=== PATIENT | female | born 1995 | race Caucasian/White ===

== ENCOUNTER 2020-11-21 17:47 | Emergency (ER) | payer OTHER, SELFPAY ==
[2020-11-21 17:55] VITALS: BP 104/87; PULSE 71; RESP 16; TEMP 36.6; O2SAT 100
--- NOTE | 2020-11-21 18:05 | ED.FEMALEGU ---
HPI - Female Genitourinary General Chief complaint: Urogenital-Female Stated complaint: Poss UTI Source: patient Mode of arrival: ambulatory Limitations: no limitations History of Present Illness HPI Narrative: Patient is a 25-year-old female who presents complaining of urinary frequency, urgency and dysuria. Patient reports initially having hematuria which has since resolved. Patient reports all signs and symptoms started approximately 1 week ago. She has been recently taking Azo with moderate relief. She reports a history of UTIs in the past, but has not had antibiotics in a while. She denies vaginal discharge or exposure to STDs. She denies significant medical history. MD elicited complaint: UTI Related Data Home Medications Medication Instructions Recorded Confirmed methadone 40 mg PO DAILY 11/21/20 11/21/20 Allergies Allergy/AdvReac Type Severity Reaction Status Date / Time Penicillins Allergy Swelling Verified 11/21/20 18:03 of Lip/Tongue/Throat Review of Systems Review of Systems: Narrative: CONSTITUTIONAL: Denies fever, chills, or sweats. EYES: Denies visual changes, redness, or discharge. ENT: Denies rhinorrhea, congestion, sore throat, or otalgia. CARDIOVASCULAR: Denies chest pain, palpitations, or edema. RESPIRATORY: Denies cough or dyspnea. GASTROINTESTINAL: Denies abdominal pain, nausea, vomiting, or diarrhea. GENITOURINARY: Reports dysuria, frequency and hematuria SKIN: Denies rash or itching. MUSCULOSKELETAL: Denies back pain, joint pain, or myalgia. NEUROLOGIC: Denies headache, numbness, dizziness, or weakness. PSYCHIATRIC: Denies anxiety or depression. [facility] Past Medical History Medical History (Updated 11/21/20 @ 18:21 by YAZAN Adams) UTI (urinary tract infection) Surgical History Surgical History (Updated 11/21/20 @ 18:21 by YAZAN Adams) No significant past surgical history Family History Family History (Updated 11/21/20 @ 18:21 by YAZAN Adams) Other No significant family history Social History Social History (Updated 11/21/20 @ 18:20 by YAZAN Adams) Smoking status: Former smoker Tobacco type: cigarettes Alcohol intake: never Substance use: former Occupation/Education: occupation Gender identity (if verbalized by the patient): Female Comments At the time of signature, I have reviewed and agree with nursing past medical, surgical, social, and family history unless otherwise noted. Please see nursing chart for further information. There is no relevant family history pertinent to the presenting complaint. Exam Narrative: Exam Narrative: GENERAL: Well-appearing, well-nourished, and in no acute distress. HEAD: Normocephalic, atraumatic. EYES: EOMI. No redness or drainage. Conjunctiva are normal. ENT: Mucous membranes pink and moist. CHEST: No respiratory distress. HEART: Regular rate and rhythm. GI: Soft, nontender without rebound, or guarding. No distention. EXTREMITIES: Normal range of motion. SKIN: Warm, dry, no rash. NEURO: No focal deficits. Alert and oriented x3. Gait steady. PSYCH: Normal affect. No signs of depression or anxiety. Course Vital Signs Vital signs: Vital Signs Temperature 36.6 C 11/21/20 17:55 Pulse Rate 71 11/21/20 17:55 Respiratory Rate 16 11/21/20 17:55 Blood Pressure 104/87 11/21/20 17:55 Pulse Oximetry 100 11/21/20 17:55 Temperature 36.6 C 11/21/20 17:55 Pulse Rate 71 11/21/20 17:55 Respiratory Rate 16 11/21/20 17:55 Blood Pressure 104/87 11/21/20 17:55 Pulse Oximetry 100 11/21/20 17:55 Reviewed MDM - Female Genitourinary MDM Narrative Medical decision making narrative: Patient's UA positive for blood, leukocytes and nitrates. Patient most likely has UTI, culture to be sent at this time. Patient started on Macrobid. Patient instructed on increasing fluids and as well as using Azo [id number] if needed. Patient agr
== END 2020-11-21 18:19 | disposition home or self-care (01) ==
PROVIDERS: Emergency Provider Nurse Practitioner
DX: N39.0 Urinary tract infection, site not specified (principal); Z87.891 Personal history of nicotine dependence
CPT/HCPCS: 81003; 87077; 87086; 87088; 87186; 99213; G0463

== ENCOUNTER 2021-03-16 12:42 | Emergency (ER) | payer OTHER, SELFPAY ==
--- NOTE | 2021-03-16 13:25 | PC.NURSE ---
~1310- pt ambulated out of ED with steady gait. No c/o voiced.
== END 2021-03-17 03:33 | disposition left against medical advice (07) ==
DX: Z53.21 Procedure and treatment not carried out due to patient leaving prior to being seen by health care provider (principal)
CPT/HCPCS: 99199

== ENCOUNTER 2021-07-15 14:51 | Emergency (ER) | payer OTHER, SELFPAY ==
--- NOTE | 2021-07-15 14:54 | ED.URI ---
HPI - URI/Sore Throat General Chief Complaint: Upper Respiratory Infection Stated Complaint: Ears and throat Time Seen by Provider: 07/15/21 14:54 Source: patient and RN notes reviewed History of Present Illness HPI Narrative: Patient is a 25-year-old female who presents the urgent care with complaints of bilateral ear pain and sore throat for the last 2 days. Patient states that her throat hurts worse on the left side. She has been taking aspirin, using cough drops and drinking cold tea. Denies of any known fevers, nausea, vomiting. Patient has had Covid approximately 4 months ago. No other acute complaints. No acute distress noted. Patient read the plan of care. Some parts of this dictation were generated by voice recognition software and may contain typographical and/or grammatical inaccuracies. Related Data Allergies Allergy/AdvReac Type Severity Reaction Status Date / Time Penicillins Allergy Swelling Verified 11/21/20 18:03 of Lip/Tongue/Throat Review of Systems Review of Systems: CONSTITUTIONAL: Denies fever, chills, or sweats. EYES: Denies visual changes, redness, or discharge. ENT: Reports of bilateral otalgia and sore throat CARDIOVASCULAR: Denies chest pain, palpitations, or edema. RESPIRATORY: Denies cough or dyspnea. GASTROINTESTINAL: Denies abdominal pain, nausea, vomiting, or diarrhea. GENITOURINARY: Denies dysuria or hematuria. SKIN: Denies rash or itching. MUSCULOSKELETAL: Denies back pain, joint pain, or myalgia. NEUROLOGIC: Denies headache, numbness, or weakness. All other systems reviewed are negative, except as documented in HPI. [facility] Past Medical History Medical History (Updated 07/15/21 @ 15:25 by YAZAN Salas) UTI (urinary tract infection) Surgical History Surgical History (Updated 11/21/20 @ 18:21 by YAZAN Adams) No significant past surgical history Family History Family History (Updated 11/21/20 @ 18:21 by YAZAN Adams) Other No significant family history Social History Social History (Updated 11/21/20 @ 18:20 by YAZAN Adams) Smoking status: Former smoker Tobacco type: cigarettes Alcohol intake: never Substance use: former Gender identity (if verbalized by the patient): Female Comments At the time of my signature, I reviewed and agree with the nursing past medical, surgical, social, and family history. There is no relevant family history pertinent to the patient complaint. Exam Narrative: GENERAL: This is a well-nourished, well-developed patient, in no apparent distress. HEAD: normocephalic, atraumatic. EYES: PERRL. Sclera clear/white. Vision is grossly intact. EARS: External ears normal, auditory canals clear and without drainage, TMs normal without perforation. Hearing grossly intact. NOSE: External nose normal with no obvious nasal discharge, nares without redness, no rhinorrhea. THROAT: Mucous membranes moist, mild to moderate tear edema/erythema noted to the left tonsil with mild edema/erythema to the right. No exudate noted. Moderate postnasal drainage. NECK: Neck supple, mild bilateral nontender submandibular lymphadenopathy CARDIOVASCULAR: Regular rate and rhythm without murmurs, gallops, or rubs. RESPIRATORY: Clear to auscultation. Breath sounds equal bilaterally. No wheezes, rales, or rhonchi. SKIN: warm, intact with no suspicious lesions or rash, good texture and turgor. NEURO: awake, alert, and oriented to person, place and time. There were no obvious focal neurologic abnormalities. EXTREMITIES: No clubbing, cyanosis, or edema. Course Vital Signs Vital signs: Vital Signs Temperature 98.8 F 07/15/21 15:00 Pulse Rate 82 07/15/21 15:00 Respiratory Rate 18 07/15/21 15:00 Blood Pressure 118/59 L 07/15/21 15:00 Pulse Oximetry 100 07/15/21 15:00 Temperature 98.8 F 07/15/21 15:22 Pulse Rate 82 07/15/21 15:22 Respiratory Rate 18 07/15/21 15:22 Blood Pressure 118/59 L 11/0
[2021-07-15 15:00] VITALS: BP 118/59; PULSE 82; RESP 18; TEMP 37.1; O2SAT 100
[2021-07-15 15:22] VITALS: BP 118/59; PULSE 82; RESP 18; TEMP 37.1; O2SAT 100
== END 2021-07-15 15:30 | disposition home or self-care (01) ==
PROVIDERS: Emergency Provider Nurse Practitioner Family
DX: J02.0 Streptococcal pharyngitis (principal)
CPT/HCPCS: 87880; 99213; G0463

== ENCOUNTER 2022-03-23 18:14 | Emergency (ER) | payer OTHER, SELFPAY ==
[2022-03-23 18:20] VITALS: BP 138/63; PULSE 64; RESP 14; TEMP 36.6; O2SAT 100
--- NOTE | 2022-03-23 18:23 | ED.NAVMDI ---
HPI - Nausea/Vomiting/Diarrhea General Chief complaint: Nausea/Vomiting/Diarrhea Stated complaint: Nausea/Headache/Dizziness Time Seen by Provider: 03/23/22 18:23 Source: patient and RN notes reviewed History of Present Illness HPI Narrative: Patient is a 26-year-old female presents the urgent care with complaints of intermittent nausea, headache, dizziness and fatigue. Patient states its been ongoing for approximately 1 week but she is feeling much better. Patient states that she has not taken anything for her symptoms and just feels like her anxiety is a little higher this week. States that she was googling things after cleaning out her hamster/rodents cage at home and assuming she came down with some lymphocytic virus. Patient denies of any abdominal pain. Patient does not appear to be in any acute distress. Patient aware of the plan of care. Some parts of this dictation were generated by voice recognition software and may contain typographical and/or grammatical inaccuracies. Related Data Home Medications Medication Instructions Recorded Confirmed methadone 10 mg tablet 35 mg PO DAILY 03/23/22 03/23/22 Allergies Allergy/AdvReac Type Severity Reaction Status Date / Time Penicillins Allergy Swelling Verified 03/23/22 18:27 of Lip/Tongue/Throat Sulfa (Sulfonamide Allergy Rash Verified 03/23/22 18:27 Antibiotics) Review of Systems Review of Systems: CONSTITUTIONAL: Denies fever, chills, or sweats. EYES: Denies visual changes, redness, or discharge. ENT: Denies rhinorrhea, congestion, sore throat, or otalgia. CARDIOVASCULAR: Denies chest pain, palpitations, or edema. RESPIRATORY: Denies cough or dyspnea. GASTROINTESTINAL: Reports of intermittent nausea and vomiting GENITOURINARY: Denies dysuria or hematuria. SKIN: Denies rash or itching. MUSCULOSKELETAL: Denies back pain, joint pain, or myalgia. NEUROLOGIC: Reports of headache All other systems reviewed are negative, except as documented in HPI. [facility] Past Medical History Medical History (Updated 03/23/22 @ 18:47 by YAZAN Salas) UTI (urinary tract infection) Surgical History Surgical History (Updated 11/21/20 @ 18:21 by Paz Gayle, YAZAN) No significant past surgical history Family History Family History (Updated 11/21/20 @ 18:21 by Paz Gayle, NURSE OFFICE) Other No significant family history Social History Social History (Updated 11/21/20 @ 18:20 by Paz Gayle, NURSE OFFICE) Smoking status: Former smoker Tobacco type: cigarettes Alcohol intake: never Substance use: former Gender identity (if verbalized by the patient): Female Comments At the time of my signature, I reviewed and agree with the nursing past medical, surgical, social, and family history. There is no relevant family history pertinent to the patient complaint. Exam Narrative: GENERAL: This is a well-nourished, well-developed patient, in no apparent distress. HEAD: normocephalic, atraumatic. EYES: PERRL. Sclera clear/white. Vision is grossly intact. EARS: External ears normal NOSE: External nose normal with no obvious nasal discharge, nares without redness, no rhinorrhea. THROAT: Mucous membranes moist NECK: Neck supple CARDIOVASCULAR: Regular rate and rhythm without murmurs, gallops, or rubs. RESPIRATORY: Clear to auscultation. Breath sounds equal bilaterally. No wheezes, rales, or rhonchi. GASTROINTESTINAL: Abdomen soft, non-tender, nondistended. SKIN: warm, intact with no suspicious lesions or rash, good texture and turgor. NEURO: awake, alert, and oriented to person, place and time. There were no obvious focal neurologic abnormalities. EXTREMITIES: No clubbing, cyanosis, or edema. Course Course Level of Care: Express Care Visit Vital Signs Vital signs: Vital Signs Temperature 97.9 F 03/23/22 18:20 Pulse Rate 64 03/23/22 18:20 Respiratory Rate 14 03/23/22 18:20 Blood Pressure 138/63 03/23/22 18:20 Pulse
== END 2022-03-23 18:49 | disposition home or self-care (01) ==
PROVIDERS: Emergency Provider Nurse Practitioner Family
DX: B34.9 Viral infection, unspecified (principal); R11.0 Nausea; Z87.891 Personal history of nicotine dependence
CPT/HCPCS: 99213; G0463

== ENCOUNTER 2023-01-17 12:37 | Emergency (ER) | payer OTHER, SELFPAY | END 2023-01-17 12:48 | disposition left against medical advice (07) | LOC: EXPBETH 12:40 | PROVIDERS: Emergency Provider Registered Nurse | DX: Z53.21 Procedure and treatment not carried out due to patient leaving prior to being seen by health care provider (principal) | CPT/HCPCS: 99199 ==

== ENCOUNTER → 2023-12-18 12:33 | Outpatient (CLI) | payer OTHER, SELFPAY ==
--- NOTE | 2023-12-18 14:43 | PC.NURSE ---
SEE DOWNTIME DOCUMENTATION.
== END ==
PROVIDERS: PCP Family Medicine; Visit Provider Nurse Practitioner Family
DX: R05.9 Cough, unspecified (principal); R50.9 Fever, unspecified; R09.81 Nasal congestion
CPT/HCPCS: 99211; G0463

== ENCOUNTER 2024-06-20 11:54 | Emergency (ER) | payer OTHER, SELFPAY ==
[2024-06-20 12:04] VITALS: BP 111/57; PULSE 84; RESP 20; TEMP 37.2; O2SAT 100
[2024-06-20 12:21] VITALS: BP 111/57; PULSE 84; RESP 20; TEMP 37.2; O2SAT 100
--- NOTE | 2024-06-20 12:41 | ED.GENADULT ---
HPI - General Adult General Chief complaint: Upper Respiratory Infection Stated complaint: lt ear and lt neck pain Time Seen by Provider: 06/20/24 12:33 Source: patient and RN notes reviewed Mode of arrival: ambulatory Limitations: no limitations History of Present Illness HPI narrative: Patient presents today complaining of left ear and neck pain x2 days, worse today. Denies any decreased hearing or drainage from the ear. Currently rates her pain 6/10 and has been taking aspirin with some mild relief. Related Data Home Medications Medication Instructions Recorded Confirmed methadone 10 mg tablet 15 mg PO DAILY 03/23/22 06/20/24 Allergies Allergy/AdvReac Type Severity Reaction Status Date / Time Penicillins Allergy Swelling Verified 06/20/24 12:21 of Lip/Tongue/Throat Sulfa (Sulfonamide Allergy Rash Verified 06/20/24 12:21 Antibiotics) Review of Systems Review of Systems: GENERAL: Denies fever, chills, or decreased activity. EYES: Denies any eye discharge or redness. ENT: Denies sore throat, congestion, or rhinorrhea.+ left ear and neck pain RESP: Denies any cough, wheezing, or difficulty breathing. CARDIOVASCULAR: Denies any rapid heart rate or cool extremities. ABDOMINAL: Denies any constipation, vomiting, diarrhea, or decreased food intake. : Denies any hematuria, foul smelling urine, or decreased urine frequency. SKIN: Denies any lesions, rashes, bruises. MUSCULOSKELETAL: Denies any pain or swelling. NEURO: Denies any lethargy, irritability, or seizures. PSYCH: Denies abnormal interaction with family and friends. [facility] Past Medical History Medical History UTI (urinary tract infection) Surgical History Surgical History No significant past surgical history Family History Family History Other No significant family history Social History Social History Smoking status: Former smoker Tobacco type: cigarettes Alcohol intake: never Substance use: former Occupation/Education: occupation Gender identity (if verbalized by the patient): Female Comments At time of signature, I have reviewed and agree with nursing past medical, surgical, social and family history unless otherwise noted. Please see nursing chart for further information. There is no relevant family history pertinent to the presenting complaint Exam Narrative: GENERAL: Well nourished, well developed, no acute distress. Well appearing, non-toxic. EYES: PERRL, EOMs normal, conjunctivae normal. ENT: Head normocephalic and atraumatic. Nose normal without drainage. TMs clear with normal light reflex. Left ear: No movement or tragal tenderness. No mastoid tenderness. Pharynx without erythema or edema. Uvula midline. Neck supple. No lymphadenopathy. Full ROM of neck with increased pain with flexion, extension, left rotation, left lateral flexion. Tenderness to the left cervical paraspinal muscles. Distal sensation intact. Capillary refill normal. Radial pulses normal. Hand principal security architect equal and strong RESP: No sign of respiratory distress. MUSC/SKEL: Good strength, good range of movement. Moves all extremities equally. NEURO: Alert. Good coordination. SKIN: Warm, dry, no rash, normal cap refill. Skin turgor normal. PSYCH: Affect and mood appropriate. Course Course Level of Care: Express Care Visit Vital Signs Vital signs: Vital Signs Temperature 98.9 F 06/20/24 12:04 Pulse Rate 84 06/20/24 12:04 Respiratory Rate 20 06/20/24 12:04 Blood Pressure 111/57 L 06/20/24 12:04 Pulse Oximetry 100 06/20/24 12:04 Oxygen Delivery Room Air 06/20/24 12:04 Temperature 98.9 F 06/20/24 12:21 Pulse Rate 84 06/20/24 12:21 Respiratory Rate 2
== END 2024-06-20 12:48 | disposition home or self-care (01) ==
PROVIDERS: Emergency Provider Nurse Practitioner
DX: S16.1XXA Strain of muscle, fascia and tendon at neck level, initial encounter (principal); X58.XXXA Exposure to other specified factors, initial encounter; Z87.891 Personal history of nicotine dependence
CPT/HCPCS: 99213; G0463

== ENCOUNTER 2025-05-15 13:59 | Emergency (ER) | payer OTHER, SELFPAY ==
[2025-05-15 14:04] VITALS: BP 137/65; PULSE 102; RESP 20; TEMP 36.7; O2SAT 100
--- NOTE | 2025-05-15 14:15 | ED.URI ---
HPI - URI/Sore Throat General Chief Complaint: Upper Respiratory Infection Stated Complaint: Chest Congestion/Nasal Congestion Time Seen by Provider: 05/15/25 14:25 Source: patient and RN notes reviewed Mode of arrival: ambulatory Limitations: no limitations History of Present Illness HPI Narrative: 29-year-old female presents with concern for runny nose, stuffy nose, sneezing, cough, sore throat. Reports symptoms started yesterday. Reports she cleaned a smoker's home yesterday. MD elicited complaint: cough and nasal congestion Related Data Allergies Allergy/AdvReac Type Severity Reaction Status Date / Time Penicillins Allergy Swelling Verified 05/15/25 14:08 of Lip/Tongue/Throat Sulfa (Sulfonamide Allergy Rash Verified 05/15/25 14:08 Antibiotics) Review of Systems Review of Systems: CONSTITUTIONAL: Denies malaise, chills, sweats, or fever. EYES: Denies visual changes, redness, or discharge. ENT: Reports rhinorrhea, congestion, and sore throat. CARDIOVASCULAR: Denies chest pain, palpitations, or edema. RESPIRATORY: Reports cough. Denies dyspnea. GASTROINTESTINAL: Denies abdominal pain, nausea, vomiting, diarrhea SKIN: Denies rash or itching. MUSCULOSKELETAL: Denies myalgia. NEUROLOGIC: Denies headache. All systems reviewed & are unremarkable except as noted in HPI and below PMFSH Past Medical History Medical History UTI (urinary tract infection) Surgical History Surgical History No significant past surgical history Family History Family History Other No significant family history Social History Social History Smoking status: Former smoker Tobacco type: cigarettes Alcohol intake: never Substance use: former Occupation/Education: occupation Gender identity (if verbalized by the patient): Female Comments At time of signature, agree with nursing past medical, surgical, social and family history. There is no relevant family history pertinent to the presenting complaint Exam Narrative: GENERAL: Well-appearing, well-nourished, and in no acute distress. HEAD: Normocephalic EYES: PERRLA, conjunctivae clear ENT: Nares clear, turbinates edematous and erythematous, clear discharge. Mucous membranes moist. TM pearly blevins with sharp light reflex bilaterally; no tragal tenderness. Oropharynx not erythematous without lesions. Tonsils not enlarged and without exudate, no drooling, no hoarseness, no trismus, uvula midline. NECK: Supple. No lymphadenopathy CHEST: Clear to auscultation, breath sounds equal. No wheezing, rhonchi, rales, or stridor. No respiratory distress, speaks in full sentences. HEART: Regular rate and rhythm. No murmur heard. SKIN: Warm, dry, no rash. NEURO: Alert and oriented x3. PSYCH: Normal mood and affect Course Course Emergency Course: Patient is aware of diagnosis, understands and agrees to treatment plan. Anticipatory guidance given. Patient agrees to follow-up as directed and is aware of reasons to seek care at the emergency department. Portions of this record may have been created with voice recognition software Level of Care: Express Care Visit Vital Signs Vital signs: Vital Signs Temperature 98.1 F 05/15/25 14:04 Pulse Rate 102 H 05/15/25 14:04 Respiratory Rate 20 05/15/25 14:04 Blood Pressure 137/65 05/15/25 14:04 Pulse Oximetry 100 05/15/25 14:04 Oxygen Delivery Room Air 05/15/25 14:04 Temperature 98.1 F 05/15/25 14:04 Pulse Rate 102 H 05/15/25 14:04 Respiratory Rate 05/15/25 14:04 Blood Pressure 137/65 05/15/25 14:04 Pulse Oximetry 100 05/15/25 14:04 Oxygen Delivery Room Air 05/15/25 14:04 Reviewed. MDM - URI/Sore Throat MDM Narrative Medical decision making narrative: Differential diagnosis considered: Meneses virus, strep pharyngitis, allergic rhinitis, upper respiratory tract infection, sinusitis, rhinosinusitis, nasopharyngitis. viral pharyngitis, otitis media, otitis externa, pneumonia, bronchitis, viral cough syndrome, viral syndrome, and influenza. Exam findings show no acute concerns or changes; patient is non-toxic appearing and is in no distress. Patient is appropriate for outpatient treatment and follow-up. Lab Data Attestation: I reviewed the patient's lab results. Critical Care Time Critical Care Time Critical Care Time: No Discharge Plan Discharge Clinical Impression: Upper respiratory infection Patient Disposition: Home Condition: Stable Instructions: Upper Respiratory Infection (ED) Additional Instructions: Your rapid COVID and flu tests are negative Your rapid strep swab was negative today at [facility]. A throat culture will be sent to the laboratory for further testing. If the test is positive, you will receive a phone call within 48 hours and an appropriate antibiotic will be initiated at that time. Your symptoms are likely due to a viral illness, which is not treated with antibiotics. Viral symptoms can be present for up to a few weeks. -Alternate Tylenol and Motrin per package directions for fever or pain. -Antihistamine medication such as Benadryl at night and Zyrtec during the day can help improve symptoms. -Eat and drink things that are easy to swallow, like tea or soup, or popsicles to suck on. -Oral rinses such as: Salt water gargles and/or may use topical anesthetic (eg. Chloraseptic spray) or lozenges to relieve dryness or throat pain). -Frequent hand washing or hand visual merchandising coordinator is one of the best ways to prevent spread of infection. -Follow up with primary care provider in 2-3 days if condition is not improving; or seek ER visit if you have trouble breathing, cannot drink enough fluids, have muffled voice, difficulty opening your mouth, or severe swelling. Patient Language: [place] Zealander Prescriptions: New cetirizine-pseudoephedrine [Zyrtec-D] 5-120 mg tablet extended release 12 hr 1 tablet PO Q12H PRN (Reason: nasal congestion) Qty: 12 0RF dextromethorphan-guaifenesin [Mucinex DM] 60-1,200 mg tablet extended release 12 hr 1 tablet PO Q12H Qty: 12 0RF Follow-up/Referrals: Jose,YAZAN Willis [Primary Care Provider, Unknown] Time of Disposition: 14:32
[2025-05-15 14:26] LABS: EDCOVIDSCREEN Negative (Negative); EDINFLUASCREEN Negative (Negative); EDINFLUBSCREEN Negative (Negative); EDSTREPNEGPOS1 Negative (Negative)
--- OUTSIDE RECORDS SUMMARY | 2025-05-15 15:18 | XMS_ITS | Clinical Summary ---
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 Active tobramycin (Tobrex) 0.3 % Solution Place 1-2 Drops in left eye every 4 hours. 5 mL 10/11/2021 Active Active Problems No known active problems Immunizations Immunization Administration Dates Next Due Covid-19, Mrna, Lnp-s, Pf, 30 Mcg/0.3 Ml Dose (P fizer) 03/05/2021 Social History Tobacco Use Types Packs/Day Years Used Date Smoking Tobacco: Former Cigarettes Smokeless Tobacco: Never Tobacco Cessation:Counseling Given: Not Answered Comments:socially Alcohol Use Standard Drinks/Week Comments Never 0 (1 standard drink = 0.6 oz pur e alcohol) AUDIT-C Answer Date Recorded Q1: How often do you have a drink containing alc ohol? 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 Gender Identity Not on file Sexual Orientation Not on file Last Filed Vital Signs Vital Sign Reading Time Taken Comments Blood Pressure 115/69 08/26/2023 8:55 AM CARPENTRY INSTRUCTOR Pulse 117 08/26/2023 8:55 AM CARPENTRY INSTRUCTOR Temperature 36.5 C (97.7 F) 08/26/2023 8:55 AM CARPENTRY INSTRUCTOR Respiratory Rate 16 08/26/2023 8:55 AM CARPENTRY INSTRUCTOR Oxygen Saturation 99% 04/11/2023 8:56 AM CDT Inhaled Oxygen Concentration - - Weight 52.5 kg (115 lb 11.9 oz) 08/26/2023 8:55 AM CARPENTRY INSTRUCTOR Height 162.6 cm (5' 4) 08/26/2023 8:55 AM CARPENTRY INSTRUCTOR Body Mass Index 19.87 08/26/2023 8:55 AM CARPENTRY INSTRUCTOR Plan of Treatment Health Maintenance Due Date Last Done Comments Hepatitis C Virus (HCV) Screening 1993 Pap Smear 2014 Human Papillomavirus (HPV) Immunization (1 - 3-dose SCDM series) 2020 Cervical Cancer Screening (CCS) 11/14/2023 HPV/Cotest 11/14/2023 Influenza Immunization (#1) 2025 SARS-COV-2 Immunization (2 - season) 2025 03/05/2021 Respiratory Syncytial Virus (RSV) Immunization (Adult) (1 - 1-dose 75+ series) 2068 Hepatitis B Immunization Completed 994, 1993, 1993 DTaP/Tdap/Td Immunization Discontinued 2008, 04/29/1999, 11/29/1994, Additional history exists TdaP Immunization Completed 04/21/2009 Meningococcal Immunization (ACWY) Aged Out No longer eligible based on patient's age to complete this topic Pneumococcal Immunization Combined Aged Out No longer eligible based on patient's age to complete this topic Rotavirus Immunization Aged Out No lo nger eligible based on patient's age to complete this topic Insurance MEDICAID [place] Care Teams Honey Grader And Blender Relationship Specialty Start Date End Date Jeferson Craig MD [address] [facility] [address] [place] [address] PCP - General Orthopaedic Surgery 04/18/21
--- OUTSIDE RECORDS SUMMARY | 2025-05-15 15:18 | XMS_ITS | Encounter Summary ---
Author Organization [facility] Address [address] 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
== END 2025-05-15 14:42 | disposition home or self-care (01) ==
PROVIDERS: Emergency Provider Nurse Practitioner; PCP Nurse Practitioner Family
DX: J06.9 Acute upper respiratory infection, unspecified (principal); Z87.891 Personal history of nicotine dependence; Z20.822 Contact with and (suspected) exposure to COVID-19
CPT/HCPCS: 87081; 87426; 87804; 87880; 99213; G0463